=== PATIENT | female | born 1935 | race Two or more races ===

== ENCOUNTER 2023-12-06 23:34 | Emergency (ER) | payer BC, OTHER ==
[~2023-12-06] VITALS: Ht 157.5 cm; Wt 54.4 kg
[2023-12-07 01:48] VITALS: BP 145/77; TEMP 98.2; O2SAT 99
== END 2023-12-07 01:49 | disposition home or self-care (01) ==
LOC: ER 23:36
DX: S00.83XA Contusion of other part of head, initial encounter (principal); F03.90 Unspecified dementia, unspecified severity, without behavioral disturbance, psychotic disturbance, mood disturbance, and anxiety; I10 Essential (primary) hypertension; F32.A Depression, unspecified; E03.9 Hypothyroidism, unspecified; Z88.0 Allergy status to penicillin; Z88.2 Allergy status to sulfonamides; W01.0XXA Fall on same level from slipping, tripping and stumbling without subsequent striking against object, initial encounter; Y93.89 Activity, other specified; Y92.89 Other specified places as the place of occurrence of the external cause; Y99.8 Other external cause status
CPT/HCPCS: 70450-TC; 72125-TC